=== PATIENT | male | born 1945 | race Caucasian/White ===

== ENCOUNTER 2018-02-07 04:24 | Emergency (ER) | payer OTHER ==
[2018-02-07 05:49] LABS: Absolute Lymphocytes (CBC) 1.2 K/uL (0.7-4.9); Absolute Monocytes 0.8 K/uL (0.1-1.3); Absolute Neutrophil 5.2 K/uL (1.8-8.0); Basophils % 0.2 % (0-1.3); Eosinophils % 1.6 % (0-4.4); Hematocrit 29.8 % (39.6-49.0); Lymphocytes % 16.9 % (15.3-44.8); MCV 94.2 fL (80-100); MPV 8.3 fL (7.6-11.3); Monocytes % 10.3 % (3.3-12.3); RBC Red Blood Cell Count 3.16 M/uL (4.33-5.43)
[2018-02-07 05:56] LABS: Potassium 3.8 mEq/L (3.6-5.0)
--- NOTE | 2018-02-07 06:06 | EDPHYS ---
Physician Documentation [facility] Name: Viet Jose Age: 73 yrs Sex: Male : 1945 Arrival Date: 02/07/2018 Time: 04:28 Bed 13 Private MD: ED Physician Juve Phillips HPI: 02/07 06:02 This 73 yrs old Male presents to ER via Ambulatory with complaints of gs Abnormal Lab Results. 06:02 told had abnormal lab results to come to ED for evaluation. Onset: The symptoms/episode gs began/occurred today. Severity of symptoms: At their worst the symptoms were mild in the emergency department the symptoms are unchanged. The patient has experienced similar episodes in the past, a few times. Historical: - Allergies: 04:54 No Known Allergies; tc3 - Home Meds: 04:54 Lasix Oral [Active]; Omeprazole Oral [Active]; Spironolactone Oral [Active]; tc3 - PMHx: 04:54 acid reflux; Cirrhosis; Hernia; Prostate Cancer; tc3 - PSHx: 04:54 Cholecystectomy; tc3 - Immunization history:: Last tetanus immunization: unknown, Pneumococcal vaccine is not up to date, Flu vaccine is not up to date. - Social history:: Smoking status: Patient uses tobacco products, denies chronic smoking, but will smoke occasionally, Patient uses street drugs, marijuana, Patient/guardian denies using alcohol, the patient reports quitting approximately 0.3 years ago. ROS: 06:02 All other systems are negative. gs Exam: 05:33 ECG was reviewed by the Attending Physician. gs 06:02 Head/Face: Normocephalic, atraumatic. Eyes: Pupils equal round and reactive to light, gs extra-ocular motions intact. Lids and lashes normal. Conjunctiva and sclera are non-icteric and not injected. Cornea within normal limits. Periorbital areas with no swelling, redness, or edema. ENT: Nares patent. No nasal discharge, no septal abnormalities noted. Tympanic membranes are normal and external auditory canals are clear. Oropharynx with no redness, swelling, or masses, exudates, or evidence of obstruction, uvula midline. Mucous membranes moist. Neck: Trachea midline, no thyromegaly or masses palpated, and no cervical lymphadenopathy. Supple, full range of motion without nuchal rigidity, or vertebral point tenderness. No Meningismus. Chest/axilla: Normal chest wall appearance and motion. Nontender with no deformity. No lesions are appreciated. Cardiovascular: Regular rate and rhythm with a normal S1 and S2. No gallops, murmurs, or rubs. Normal PMI, no JVD. No pulse deficits. Respiratory: Lungs have equal breath sounds bilaterally, clear to auscultation and percussion. No rales, rhonchi or wheezes noted. No increased work of breathing, no retractions or nasal flaring. 06:02 Back: No spinal tenderness. No costovertebral tenderness. Full range of motion. Skin: Warm, dry with normal turgor. Normal color with no rashes, no lesions, and no evidence of cellulitis. MS/ Extremity: Pulses equal, no cyanosis. Neurovascular intact. Full, normal range of motion. Neuro: Awake and alert, GCS 15, oriented to person, place, time, and situation. Cranial nerves II-XII grossly intact. Motor strength 5/5 in all extremities. Sensory grossly intact. Cerebellar exam normal. Normal gait. 06:02 Constitutional: The patient appears alert, awake, frail. 06:02 Abdomen/GI: Inspection: distension, Palpation: abdomen is soft and non-tender, + ascites. Vital Signs: 04:50 BP 149 / 75; Pulse 73; Resp 18; Temp 97.8(O); Pulse Ox 100% on R/A; Weight 53.52 kg jd3 (R); Height 5 ft. 9 in. (175.26 cm) (R); Pain 0/10; 04:54 BP 123 / 74; Pulse 74; Resp 18; Pulse Ox 100% on R/A; Pain 0/10; ar4 06:05 BP 108 / 55; Pulse 60; Resp 15 S; Pulse Ox 100% on R/A; Pain 0/10; jd3 04:50 Body Mass Index 17.43 (53.52 kg, 175.26 cm) jd3 04:54 Pt. reports, "I'm not having anymore pain; 0/10." ar4 MDM: 05:09 Patient medically screened. gs 06:02 Differential Diagnosis hyperkalemia, arf, metabolic acidosis. Data reviewed: vital gs signs, nurses notes. Response to treatment: There is no appreciated change of the patient's symptoms at this time, and as a result, I will discharge patient. 06:05 ED course: no ekg changes no hyperkalemia, pt wants to go to [facility] for discharge and follow up with his doctor today. 02/07 05:10 Order name: Basic Metabolic Panel 02/07 05:10 Order name: CBC with Diff 02/07 05:10 Order name: EKG; Complete Time: 05:11 02/07 05:10 Order name: Cardiac monitoring; Complete Time: 05:11 02/07 05:54 Order name: CBC with Automated Diff; Complete Time: 06: EDVT 02/07 05:56 Order name: Basic Metabolic Panel; Complete Time: 06:01 EDVT 02/07 05:10 Order name: EKG - Nurse/Tech; Complete Time: 05:19 02/07 05:10 Order name: IV Saline Lock; Complete Time: 05:23 02/07 05:10 Order name: Labs collected and sent; Complete Time: 05:23 02/07 05:10 Order name: O2 Per Protocol; Complete Time: 05:11 02/07 05:10 Order name: O2 Sat Monitoring; Complete Time: 05:11 EC:33 Rate is 64 beats/min. Rhythm is regular. MD interval is normal. QRS interval is normal. gs T waves are Normal. No ST changes noted. Clinical impression: Normal ECG. Interpreted by me. Administered Medications: No medications were administered Disposition: 02/07/18 06:04 Discharged to Home. Impression: Chronic kidney disease (CKD). - Condition is Stable. - Discharge Instructions: Chronic Kidney Disease. - Medication Reconciliation Form, Thank You Letter, Antibiotic Education, Prescription Opioid Use form. - Follow up: Private Physician; When: Today; Reason: Re-evaluation by your physician. Signatures: Dispatcher [employer] Stacia Pearce RN RN tc3 Juve Phillips MD MD gs Davies, Jonathon, RN RN jd3
--- NOTE | 2018-02-07 06:06 | ER ---
Nurse's Notes [facility] Name: Viet Jose Age: 73 yrs Sex: Male : 1945 Arrival Date: 02/07/2018 Time: 04:28 Bed 13 Private MD: Diagnosis: Chronic kidney disease (CKD) Presentation: 02/07 04:39 Presenting complaint: Patient states: "I was called by my liver transplant doctor ( tc3 Rashaun Salas [phone] Ext [phone]) this evening and told to get to the nearest ER as I was in kidney failure and would be martin to make it through the day if I didn't. I had blood work drawn yesterday and he called me last night around 21:00. He said my lab was BUN= 63, Chloride= 107, K= 5.1, CO2= 18, and Creatinine= 4.88. He also told me to stop all my medications immediately". Transition of care: patient was not received from another setting of care. Onset of symptoms was February 06, 2018. Care prior to arrival: None. 04:39 Method Of Arrival: Ambulatory tc3 04:39 Acuity: DEMARCUS 3 tc3 Historical: - Allergies: 04:54 No Known Allergies; tc3 - Home Meds: 04:54 Lasix Oral [Active]; Omeprazole Oral [Active]; Spironolactone Oral [Active]; tc3 - PMHx: 04:54 acid reflux; Cirrhosis; Hernia; Prostate Cancer; tc3 - PSHx: 04:54 Cholecystectomy; tc3 - Immunization history:: Last tetanus immunization: unknown, Pneumococcal vaccine is not up to date, Flu vaccine is not up to date. - Social history:: Smoking status: Patient uses tobacco products, denies chronic smoking, but will smoke occasionally, Patient uses street drugs, marijuana, Patient/guardian denies using alcohol, the patient reports quitting approximately 0.3 years ago. Screenin:45 Abuse screen: Denies threats or abuse. Denies injuries from another. Nutritional tc3 screening: No deficits noted. Tuberculosis screening: No symptoms or risk factors identified. Fall Risk None identified. Assessment: 04:55 General: Appears in no apparent distress. comfortable, Behavior is calm, cooperative. ar4 Pain: Denies pain. Neuro: Level of Consciousness is awake, alert, obeys commands, Oriented to person, place, time, situation, Middle School Coach are equal bilaterally Moves all extremities. Speech is normal, Facial symmetry appears normal, Pupils are PERRLA. Neuro:. Cardiovascular: Reports None Denies chest pain, shortness of breath, Heart tones S1 S2 present Capillary refill < 3 seconds is brisk in left fingers Patient's skin is warm and dry. Pulses are all present. Rhythm is regular Chest pain is denied. Cardiovascular: Parent/caregiver reports patient has had no cardiovascular symptoms. Respiratory: Airway is patent Breath sounds are clear bilaterally. Respiratory: Denies shortness of breath at rest, on exertion, labored breathing. GI: Bowel sounds present X 4 quads. Abd is soft and non tender X 4 quads. Pt. reports, "I'm not having anymore pain. My doctor called last night and said I would not live to see the morning, if I did not come in last night or this morning; so here I am. He called me about 9:00 last night.". GI: Abdomen is round non-distended, Reports Pt. reports, "I was having some stomach pain last night, but right now I do not have any pain." Patient currently denies diarrhea, nausea, vomiting. : No signs and/or symptoms were reported regarding the genitourinary system. EENT: No signs and/or symptoms were reported regarding the EENT system. Derm: Skin is intact, Skin is dry, Skin is jaundiced, Skin temperature is warm abdomen is cool to touch. Musculoskeletal: No signs and/or symptoms reported regarding the musculoskeletal system. Circulation, motion, and sensation intact. 04:55 Neuro: Gait is unsteady. GI: Abdomen is distended, noted to have ascites, Abd is soft ar4 Abdomen is tender to palpation in epigastric area, right upper quadrant, left upper quadrant, right lower quadrant and left lower quadrant Patient currently denies. Musculoskeletal: Reports Pt. reports, "I did the tests for my walking. I don't have any issues, but I use my cane to help keep me steady.". 06:06 Reassessment: Patient appears in no apparent distress at this time. No changes from jd3 previously documented assessment. Patient and/or family updated on plan of care and expected duration. Pain level reassessed. Patient is alert, oriented x 3, equal unlabored respirations, skin warm/dry/pink. 06:13 Reassessment: Patient appears in no apparent distress at this time. Patient and/or jd3 family updated on plan of care and expected duration. Pain level reassessed. Patient is alert, oriented x 3, equal unlabored respirations, skin warm/dry/pink. pt reported understanding of discharge instructions. Vital Signs: 04:50 BP 149 / 75; Pulse 73; Resp 18; Temp 97.8(O); Pulse Ox 100% on R/A; Weight 53.52 kg jd3 (R); Height 5 ft. 9 in. (175.26 cm) (R); Pain 0/10; 04:54 BP 123 / 74; Pulse 74; Resp 18; Pulse Ox 100% on R/A; Pain 0/10; ar4 06:05 BP 108 / 55; Pulse 60; Resp 15 S; Pulse Ox 100% on R/A; Pain 0/10; jd3 04:50 Body Mass Index 17.43 (53.52 kg, 175.26 cm) jd3 04:54 Pt. reports, "I'm not having anymore pain; 0/10." ar4 ED Course: 04:28 Patient arrived in ED. do 04:45 Arm band placed on. tc3 04:45 Patient has correct armband on for positive identification. Placed in gown. Bed in low tc3 position. Call light in reach. Side rails up X2. Pulse ox on. NIBP on. Warm blanket given. Verbal reassurance given. 04:48 Stacia Weaver RN is Primary Nurse. tc3 04:53 Triage completed. tc3 05:09 Juve Phillips MD is Attending Physician. gs 05:15 EKG done. tc3 05:21 Inserted saline lock: 20 gauge in right antecubital area, using aseptic technique. ar4 Blood collected. 05:21 CBC with Diff Sent, Basic Metabolic Panel Sent. tc3 05:32 Report given to BRYAN Peralta. tc3 06:14 No provider procedures requiring assistance completed. IV discontinued, intact, jd3 bleeding controlled, No redness/swelling at site. Pressure dressing applied. Administered Medications: No medications were administered Outcome: 06:04 Discharge ordered by . gs 06:14 Attestation : I concur with the documentation of Rebeca ROBLES. jd3 06:14 Discharged to home ambulatory. 06:14 Condition: stable 06:14 Discharge instructions given to patient, Instructed on discharge instructions, follow up and referral plans. Demonstrated understanding of instructions, follow-up care. 06:19 Patient left the ED. jd3 Signatures: Alison Singh Teresa RN RN tc3 Juve Phillips MD MD gs Davies, Jonathon, RN RN jd3 Roberts, Amber ar4 Corrections: (The following items were deleted from the chart) 05:10 04:55 Derm: Skin is intact, Skin is dry, Skin is normal, Skin temperature is warm ar4 ar4 05:30 05:29 BASIC METABOLIC PANEL+C.LAB.BRZ drawn and sent. tc3 tc3 05:30 05:29 CBC+H.LAB.BRZ drawn and sent. tc3 tc3
--- NOTE | 2018-02-07 07:32 | EKG ---
Test Date: 2018-02-07 Test Time: 05:11:51 Hims Manager: CRISTI MEASUREMENT RESULTS: Intervals: Rate: 64 SC: 144 QRSD: 82 QT: 428 QTc: 441 [place]: P: 29 SC: 144 QRS: 15 T: 43 INTERPRETIVE STATEMENTS: Normal sinus rhythm Normal ECG Compared to ECG 12/23/2017 16:59:45 ST (T wave) deviation no longer present Prolonged QT interval no longer present Electronically Signed On 02-07-18 07:31:50 CDT by Bucky Mendoza
== END 2018-02-07 06:19 | disposition home or self-care (01) ==
LOC: ER 04:24
DX: N18.9 Chronic kidney disease, unspecified (principal); K74.60 Unspecified cirrhosis of liver; Z85.46 Personal history of malignant neoplasm of prostate; Z72.0 Tobacco use
CPT/HCPCS: 36415; 80048; 85025; 93005; 99284

== ENCOUNTER 2018-06-13 23:40 | Emergency (ER) | payer OTHER ==
[2018-06-14 00:31] LABS: Absolute Lymphocytes (CBC) 0.7 K/uL (0.7-4.9); Absolute Monocytes 1.5 K/uL (0.1-1.3); Absolute Neutrophil 12.1 K/uL (1.8-8.0); Basophils % 0.3 % (0-1.3); Eosinophils % 0.5 % (0-4.4); Hematocrit 22.4 % (39.6-49.0); Lymphocytes % 4.6 % (15.3-44.8); MCH 33.2 pg (27.0-35.0); MCV 100.4 fL (80-100); MPV 8.6 fL (7.6-11.3); Monocytes % 10.4 % (3.3-12.3); RBC Red Blood Cell Count 2.23 M/uL (4.33-5.43)
[2018-06-14 00:38] LABS: Potassium 5.5 mmol/L (3.5-5.1)
[2018-06-14 01:04] LABS: Urine White Blood Cell Casts OK
[2018-06-14 01:05] LABS: Anisocytosis 1+; Blood Morphology Comment NOTED (NOT SEEN); Platelet Estimate ADEQ
[2018-06-14] MEDS ORDERED: SOD POLYSTYREN SUL 15 GM/60 ML UCUP ONE (01:21)
[2018-06-14] MEDS ORDERED: NA CHLORIDE 0.9% 1,000 ML ONE (01:29)
--- NOTE | 2018-06-14 02:41 | ER ---
Nurse's Notes [facility] Name: Viet Jose Age: 73 yrs Sex: Male : 1945 Arrival Date: 06/13/2018 Time: 23:45 Bed 30 Private MD: Diagnosis: Anemia, unspecified;Hematuria;Chronic kidney disease (CKD) Presentation: 06/13 23:46 Presenting complaint: EMS states: "PATIENT FELL AND ACCIDENTALLY YANKED HIS CATHETER. rv HE IS BLEEDING FROM THE CATHETER. NO LOSS OF CONSCIOUSNESS.". Transition of care: patient was not received from another setting of care. Onset of symptoms was June 13, 2018 at 22:00. Risk Assessment: Do you want to hurt yourself or someone else? Patient reports no desire to harm self or others. Initial Sepsis Screen: Does the patient meet any 2 criteria? No. Patient's initial sepsis screen is negative. Does the patient have a suspected source of infection? No. Patient's initial sepsis screen is negative. Care prior to arrival: None. 23:46 Method Of Arrival: EMS: [facility] rv 23:46 Acuity: DEMARCUS 3 rv Triage Assessment: 06/14 01:10 General: Appears in no apparent distress. comfortable, Behavior is calm, cooperative. rv Pain: Denies pain. Historical: - Allergies: 06/13 23:52 No Known Allergies; rv - Home Meds: 23:52 Cipro 500 mg Oral tab [Active]; ferrous gluconate 324 mg (36 mg iron) Oral tab rv [Active]; Furosemide Oral [Active]; Lactulose Oral [Active]; Levofloxacin Oral [Active]; NUTRITION SUPPLEMENT [Active]; omeprazole Oral [Active]; rifaximin oral oral [Active]; Spironolactone Oral [Active]; - Immunization history:: Adult Immunizations up to date. - Ebola Screening: : No symptoms or risks identified at this time. - Social history:: Smoking status: unknown. Screenin/25 00:15 Abuse screen: Denies threats or abuse. Denies injuries from another. Nutritional rv screening: No deficits noted. 00:15 Tuberculosis screening: No symptoms or risk factors identified. Fall Risk None rv identified. Assessment: 00:15 General: Appears in no apparent distress. comfortable, Behavior is calm, cooperative. rv 00:15 Pain: Denies pain. Neuro: Level of Consciousness is awake, alert, obeys commands, rv Oriented to person, place, time, situation. Cardiovascular: Heart tones S1 S2 present. Respiratory: Airway is patent. GI: No signs and/or symptoms were reported involving the gastrointestinal system. : No signs and/or symptoms were reported regarding the genitourinary system. EENT: No signs and/or symptoms were reported regarding the EENT system. Derm: Skin is intact. Vital Signs: 06/13 23:48 BP 132 / 119; Pulse 104; Resp 22; Temp 98.8; Pulse Ox 100% ; Weight 43.09 kg; Height 5 kr2 ft. 9 in. (175.26 cm); 06/14 01:14 BP 99 / 66; Pulse 102; Pulse Ox 100% on R/A; rv 01:39 BP 114 / 58; Pulse 100; Pulse Ox 100% on R/A; rv 02:43 BP 110 / 62; Pulse 94; Pulse Ox 100% on R/A; rv 06/13 23:48 Body Mass Index 14.03 (43.09 kg, 175.26 cm) kr2 ED Course: 06/13 23:45 Patient arrived in ED. rv 23:47 Triage completed. rv 23:49 Placed in gown. Bed in low position. Call light in reach. Side rails up X 1. Cardiac kr2 monitor on. Pulse ox on. NIBP on. Sitter at bedside. Door closed. Noise minimized. Warm blanket given. Pillow given. Head of bed elevated. 23:50 Shawn Blevins NP is PHCP. pm1 23:50 Francisco Wells MD is Attending Physician. pm1 06/14 00:15 Inserted saline lock: 20 gauge in left antecubital area, using aseptic technique. rv Bladder irrigated via [place] with 2.5 liters normal saline returned clear fluid Patient tolerated well. 01:10 Arm band placed on left wrist. rv 02:43 No provider procedures requiring assistance completed. IV discontinued, bleeding rv controlled, No redness/swelling at site. Pressure dressing applied. Administered Medications: 01:24 Drug: Kayexalate 45 grams Route: PO; rv 01:37 Follow up: Response: No adverse reaction rv 01:29 Drug: NS 0.9% 500 ml Route: IV; Rate: bolus; Site: left antecubital; rv 02:20 Follow up: IV Status: Completed infusion rv 02:10 Drug: NS 0.9% 500 ml Route: IV; Rate: bolus; Site: left antecubital; rv 02:51 Follow up: IV Status: Completed infusion rv Outcome: 02:41 Discharge ordered by . pm1 02:44 Discharged to home via wheelchair. rv 02:44 Condition: improved 02:44 Discharge instructions given to patient, Instructed on discharge instructions. 02:51 Patient left the ED. rv Signatures: Shawn Blevins NP DECORATION CHECKER pm1 Ruchi Ly RN RN kr2 Jean Claude Galvez RN RN rv Corrections: (The following items were deleted from the chart) 01:16 01:14 BP 116 / 96; Pulse 73bpm; Pulse Ox 97% RA; rv rv
--- NOTE | 2018-06-14 02:41 | EDPHYS ---
Physician Documentation [facility] Name: Viet Jose Age: 73 yrs Sex: Male : 1945 Arrival Date: 06/13/2018 Time: 23:45 Bed 30 Private MD: ED Physician Francisco Wells HPI: 06/14 02:24 This 73 yrs old Male presents to ER via EMS with complaints of Hematuria. pm1 02:24 The patient presents with a Woodard catheter problem, draining bloody urine. Onset: The pm1 symptoms/episode began/occurred today. Modifying factors: The symptoms are alleviated by nothing, the symptoms are aggravated by nothing. Associated signs and symptoms: Pertinent negatives: abdominal pain, fever, nausea, vomiting. The patient has experienced similar episodes in the past, multiple times. The patient has been recently seen by a physician: with similar presenting complaints, patient with hematuria and cystoscopes performed last week. Catheter changed on by urologist. Patient with appointment at the [place] tomorrow. Patient was taking is pants off and tripped and tugged on his Woodard catheter. Patient with hematuria. Patient has had on and off hematuria for the past 2 months. Taking iron supplements. Historical: - Allergies: 06/13 23:52 No Known Allergies; rv - Home Meds: 23:52 Cipro 500 mg Oral tab [Active]; ferrous gluconate 324 mg (36 mg iron) Oral tab rv [Active]; Furosemide Oral [Active]; Lactulose Oral [Active]; Levofloxacin Oral [Active]; NUTRITION SUPPLEMENT [Active]; omeprazole Oral [Active]; rifaximin oral oral [Active]; Spironolactone Oral [Active]; - Immunization history:: Adult Immunizations up to date. - Ebola Screening: : No symptoms or risks identified at this time. - Social history:: Smoking status: unknown. ROS: 06/14 02:24 Constitutional: Negative for fever, chills, and weight loss, Eyes: Negative for injury, pm1 pain, redness, and discharge, ENT: Negative for injury, pain, and discharge, Neck: Negative for injury, pain, and swelling, Cardiovascular: Negative for chest pain, palpitations, and edema, Respiratory: Negative for shortness of breath, cough, wheezing, and pleuritic chest pain, Abdomen/GI: Negative for abdominal pain, nausea, vomiting, diarrhea, and constipation, Back: Negative for injury and pain. MS/Extremity: Negative for injury and deformity, Skin: Negative for injury, rash, and discoloration. Neuro: Negative for headache, weakness, numbness, tingling, and seizure. : Positive for hematuria. Exam: 02:24 Constitutional: This is a well developed, well nourished patient who is awake, alert, pm1 and in no acute distress. Head/Face: Normocephalic, atraumatic. Eyes: Pupils equal round and reactive to light, extra-ocular motions intact. Lids and lashes normal. Conjunctiva and sclera are non-icteric and not injected. Cornea within normal limits. Periorbital areas with no swelling, redness, or edema. ENT: Nares patent. No nasal discharge, no septal abnormalities noted. Tympanic membranes are normal and external auditory canals are clear. Oropharynx with no redness, swelling, or masses, exudates, or evidence of obstruction, uvula midline. Mucous membranes moist. Neck: Trachea midline, no thyromegaly or masses palpated, and no cervical lymphadenopathy. Supple, full range of motion without nuchal rigidity, or vertebral point tenderness. No Meningismus. Chest/axilla: Normal chest wall appearance and motion. Nontender with no deformity. No lesions are appreciated. Cardiovascular: Regular rate and rhythm with a normal S1 and S2. No gallops, murmurs, or rubs. Normal PMI, no JVD. No pulse deficits. Respiratory: Lungs have equal breath sounds bilaterally, clear to auscultation and percussion. No rales, rhonchi or wheezes noted. No increased work of breathing, no retractions or nasal flaring. Abdomen/GI: Soft, non-tender, with normal bowel sounds. No distension or tympany. No guarding or rebound. No evidence of tenderness throughout. Back: No spinal tenderness. No costovertebral tenderness. Full range of motion. 02:24 MS/ Extremity: Pulses equal, no cyanosis. Neurovascular intact. Full, normal range of motion. 02:24 Skin: Warm, dry with normal turgor. Normal color with no rashes, no lesions, and no evidence of cellulitis. 02:24 : Bladder: is normal, non-distended, non-tender, a woodard is noted, urine is blood tinged. 02:24 Neuro: Orientation: is normal, Motor: moves all fours. Vital Signs: 06/13 23:48 BP 132 / 119; Pulse 104; Resp 22; Temp 98.8; Pulse Ox 100% ; Weight 43.09 kg; Height 5 kr2 ft. 9 in. (175.26 cm); 06/14 01:14 BP 99 / 66; Pulse 102; Pulse Ox 100% on R/A; rv 01:39 BP 114 / 58; Pulse 100; Pulse Ox 100% on R/A; rv 02:43 BP 110 / 62; Pulse 94; Pulse Ox 100% on R/A; rv 06/13 23:48 Body Mass Index 14.03 (43.09 kg, 175.26 cm) kr2 MDM: 06/13 23:50 Patient medically screened. pm1 06/14 02:39 Data reviewed: vital signs. Data interpreted: Pulse oximetry: on room air is 100 %. pm1 Interpretation: normal. Counseling: I had a detailed discussion with the patient and/or guardian regarding: the historical points, exam findings, and any diagnostic results supporting the discharge/admit diagnosis, lab results, the need for outpatient follow up, a urologist, to return to the emergency department if symptoms worsen or persist or if there are any questions or concerns that arise at home. 02:39 ED course: Catheter was not pulled out. V/S. Bladder irrigation improved urine. Urine pm1 is slightly blood tinged. Patient instructed to keep appointment with PCP for further evaluation at the [place] and referral and evaluation by urologist . 06/14 00:02 Order name: CBC with Diff; Complete Time: 01:06 pm1 06/14 00:02 Order name: BMP; Complete Time: 00:45 pm1 06/14 01:05 Order name: CBC Smear Scan; Complete Time: 01:06 EDMS 06/14 00:02 Order name: Bladder Irrigation; Complete Time: 01:14 pm1 Administered Medications: :24 Drug: Kayexalate 45 grams Route: PO; rv 01:37 Follow up: Response: No adverse reaction rv 01:29 Drug: NS 0.9% 500 ml Route: IV; Rate: bolus; Site: left antecubital; rv 02:20 Follow up: IV Status: Completed infusion rv 02:10 Drug: NS 0.9% 500 ml Route: IV; Rate: bolus; Site: left antecubital; rv 02:51 Follow up: IV Status: Completed infusion rv Disposition: 04:28 Co-signature as Attending Physician, Francisco Wells MD. [email or web address] Disposition: 06/14/18 02:41 Discharged to Home. Impression: Anemia, unspecified, Hematuria, Chronic kidney disease (CKD). - Condition is Stable. - Discharge Instructions: Anemia, Nonspecific, Hematuria, Adult, Chronic Kidney Disease, Adult. - Medication Reconciliation Form, Thank You Letter form. - Follow up: Emergency Department; When: As needed; Reason: Worsening of condition. Follow up: Private Physician; When: Tomorrow; Reason: Recheck today's complaints, Continuance of care, Re-evaluation by your physician. - Problem is new. - Symptoms have improved. Signatures: Dispatcher [employer] EDFrancisco Ornelas, Shawn Charles MD, RUBBER ROLLER GRINDER OPERATOR RUBBER ROLLER GRINDER OPERATOR pm1 Ruchi Ly RN RN kr2 Jean Claude Galvez RN RN rv Corrections: (The following items were deleted from the chart) 02:47 02:41 06/14/2018 02:41 Discharged to Home. Impression: Anemia, unspecified; Hematuria. pm1 Condition is Stable. Forms are Medication Reconciliation Form, Thank You Letter, Antibiotic Education, Prescription Opioid Use. Follow up: Emergency Department; When: As needed; Reason: Worsening of condition. Follow up: Private Physician; When: Tomorrow; Reason: Recheck today's complaints, Continuance of care, Re-evaluation by your physician. Problem is new. Symptoms have improved. pm1 02:51 02:47 06/14/2018 02:41 Discharged to Home. Impression: Anemia, unspecified; Hematuria; rv Chronic kidney disease (CKD). Condition is Stable. Discharge Instructions: Anemia, Nonspecific, Hematuria, Adult. Forms are Medication Reconciliation Form, Thank You Letter. Follow up: Emergency Department; When: As needed; Reason: Worsening of condition. Follow up: Private Physician; When: Tomorrow; Reason: Recheck today's complaints, Continuance of care, Re-evaluation by your physician. Problem is new. Symptoms have improved. pm1
== END 2018-06-14 02:51 | disposition home or self-care (01) ==
LOC: ER 23:40
DX: D64.9 Anemia, unspecified (principal); R31.9 Hematuria, unspecified; N18.9 Chronic kidney disease, unspecified
CPT/HCPCS: 36415; 51700; 80048; 85025; 96360; 99285

== ENCOUNTER 2018-06-16 11:05 | Emergency (ER) | payer OTHER ==
[2018-06-16] MEDS ORDERED: LIDOCAINE VISCOUS 2% SOLN 15 ML UDC ONE (11:32)
[2018-06-16] MEDS ORDERED: CIPROFLOXACIN HCL 500 MG TAB ONE (11:50)
[2018-06-16] MEDS ORDERED: metroNIDAZOLE 500 MG TABLET ONE (11:50)
--- NOTE | 2018-06-16 12:00 | ER ---
Nurse's Notes [facility] Name: Viet Jose Age: 73 yrs Sex: Male : 1945 Arrival Date: 06/16/2018 Time: 11:07 Bed 6 Private MD: Josiane Oakley Diagnosis: Gross hematuria;Anemia, unspecified;Unspecified cirrhosis of liver;Weakness Presentation: 06/16 11:18 Presenting complaint: Patient states: was discharged from [facility] last week, s/p umbilical iw hernia surgery on May 16, woodard was placed 06-08-18 prior to discharge, pt has had bleeding in catheter since then, had a fall Tuesday, was seen in ER and Woodard was flushed, pt was sent home, today has had increased pain at woodard insertion site, feels like he is retaining urine. Transition of care: patient was not received from another setting of care. Onset of symptoms was June 16, 2018. Risk Assessment: Do you want to hurt yourself or someone else? Patient reports no desire to harm self or others. Initial Sepsis Screen: Does the patient meet any 2 criteria? No. Patient's initial sepsis screen is negative. Does the patient have a suspected source of infection? No. Patient's initial sepsis screen is negative. Care prior to arrival: None. 11:18 Method Of Arrival: Wheelchair iw 11:18 Acuity: DEMARCUS 3 iw 15:04 Acuity: DEMARCUS 2 ph Historical: - Allergies: 11:25 NKA; iw - Home Meds: 11:31 ferrous gluconate 324 mg (36 mg iron) Oral tab daily [Active]; furosemide 40 mg Oral iw tab 1 tab once daily [Active]; lactulose 10 gram/15 mL (15 mL) Oral soln 15 mL three times a day [Active]; levofloxacin 500 mg Oral tab every other day [Active]; omeprazole 20 mg Oral cpDR 1 cap once daily [Active]; rifaximin oral 550 mg oral 2 times per day [Active]; spironolactone 100 mg Oral tab 1 tab once daily [Active]; tamsulosin 0.4 mg oral cp24 1 cap once daily [Active]; - PMHx: 11:25 Cirrhosis; Depression; gastroenteritis; Anemia; GERD; Hyperlipidemia; Kidney stones; iw Prostate Cancer; Esophageal Varices; - PSHx: 11:38 Bowel resection; iw - Immunization history:: Adult Immunizations up to date. - Social history:: Smoking status: Patient/guardian denies using tobacco, Patient/guardian denies using alcohol, stopped drinking 6-8 months ago. - Ebola Screening: : Patient negative for fever greater than or equal to 101.5 degrees Fahrenheit, and additional compatible Ebola Virus Disease symptoms Patient denies exposure to infectious person Patient denies travel to an Ebola-affected area in the 21 days before illness onset No symptoms or risks identified at this time. - Family history:: not pertinent. Screenin:30 Abuse screen: Denies threats or abuse. Denies injuries from another. Nutritional jl7 screening: No deficits noted. Tuberculosis screening: No symptoms or risk factors identified. Fall Risk No fall in past 12 months (0 pts). No secondary diagnosis (0 pts). IV access (20 points). Ambulatory Aid- None/Bed Rest/Nurse Assist (0 pts). Gait- Weak (10 pts.). Mental Status- Oriented to own ability (0 pts). Total An Fall Scale indicates Low Risk Score (25-44 pts). Fall prevention measures have been instituted. Side Rails Up X 2 Placed close to Nursing Station Frequent Obs/Assesments occuring Family Present and informed to notify staff if they need to leave bedside As available Patient and Family Educated on Fall Prevention Program and strategies. Assessment: 11:30 General: Appears in no apparent distress. uncomfortable, Behavior is calm, cooperative, jl7 appropriate for age. Pain: Complains of pain in meatus Pain does not radiate. Pain currently is 0 out of 10 on a pain scale. at worst was 9 out of 10 on a pain scale. Quality of pain is described as "Pain." Pain began 1 day ago. Is intermittent. Neuro: Level of Consciousness is awake, alert, obeys commands, Oriented to person, place, time, situation. Cardiovascular: Heart tones present Patient's skin is warm and dry. Respiratory: Airway is patent Respiratory effort is even, unlabored, Respiratory pattern is regular, symmetrical. GI: Abdomen is round distended, bruised on right lower quadrant and left lower quadrant. : Woodard in place to gravity drainage Urine is [place] blood. EENT: No signs and/or symptoms were reported regarding the EENT system. Derm: Skin is dry, Skin is pale, Skin temperature is warm. 12:30 Reassessment: No changes from previously documented assessment. Patient and/or family jl7 updated on plan of care and expected duration. Pain level reassessed. Patient is alert, oriented x 3, equal unlabored respirations, skin warm/dry/pink. 13:30 Reassessment: Patient and/or family updated on plan of care and expected duration. Pain jl7 level reassessed. Patient is alert, oriented x 3, equal unlabored respirations, skin warm/dry/pink. 14:40 Reassessment: PRBC Unit #1 to left hand. jl7 14:55 Reassessment: PRBC infusion moved to right AC. jl7 15:10 Reassessment: FFP #1 to left hand. jl7 17:25 Reassessment: PRBC Unit #2 to right AC. jl7 17:40 Reassessment: FFP #2 to left hand. jl7 18:30 Reassessment: No changes from previously documented assessment. Patient and/or family jl7 updated on plan of care and expected duration. Pain level reassessed. Patient is alert, oriented x 3, equal unlabored respirations, skin warm/dry/pink. 19:15 General: Appears in no apparent distress. uncomfortable, Behavior is calm, cooperative, tl2 appropriate for age. Pain: Complains of pain in meatus Is intermittent. Neuro: Level of Consciousness is awake, alert, obeys commands, Oriented to person, place, time, situation. Cardiovascular: Denies chest pain. Respiratory: Airway is patent Respiratory effort is even, unlabored, Respiratory pattern is regular, symmetrical. GI: Abdomen is round distended, bruised on right upper quadrant, left upper quadrant, right lower quadrant and left lower quadrant. : Woodard in place to gravity drainage Urine is [place] blood. Derm: Skin is pink, warm \\T\\ dry. 19:30 Reassessment: Blood and FFP infusions completed. tl2 20:55 Reassessment: [facility] tl2 23:51 Reassessment: Pt c/o increased pain in penis and felt like "something is blocking me tl2 from peeing". Flushed catheter with 20 mL of NS and urine began to drain. Drained 500 mL of merlot colored urine and small clots noted. Pt stated he felt better. EMS at bedside for transfer. Vital Signs: 11:26 BP 100 / 61; Pulse 107; Resp 18 S; Temp 97.6(O); Pulse Ox 100% on R/A; Weight 47.63 kg; iw Height 5 ft. 9 in. (175.26 cm); Pain 4/10; 12:30 BP 89 / 52; Pulse 100; Resp 16; Pulse Ox 98% on R/A; jl7 14:40 BP 86 / 51; Pulse 98; Resp 15; Pulse Ox 100% on R/A; jl7 15:00 BP 97 / 54; Pulse 101; Resp 15; Pulse Ox 100% on R/A; jl7 16:00 BP 105 / 62; Pulse 88; Resp 16; Pulse Ox 100% on R/A; jl7 16:15 BP 110 / 62; Pulse 90; Resp 16; Pulse Ox 100% on R/A; jl7 16:45 BP 112 / 62; Pulse 92; Resp 14; Pulse Ox 100% on R/A; jl7 17:30 BP 112 / 65; Pulse 88; Resp 14; Temp 98.5; Pulse Ox 100% ; Pain 4/10; jl7 18:00 BP 113 / 63; Pulse 83; Resp 15; Pulse Ox 100% on R/A; jl7 18:30 BP 114 / 66; Pulse 86; Resp 16; Pulse Ox 100% on R/A; jl7 19:15 BP 115 / 70; Pulse 81; Resp 16; Pulse Ox 99% on R/A; ao 20:26 BP 113 / 66; Pulse 82; Resp 14; Pulse Ox 100% ; ao 22:01 BP 101 / 62; Pulse 99; Resp 12; Pulse Ox 99% ; ao 23:53 BP 115 / 71; Pulse 97; Resp 18; Pulse Ox 97% on R/A; tl2 11:26 Body Mass Index 15.51 (47.63 kg, 175.26 cm) iw ED Course: 11:07 Patient arrived in ED. as 11:08 [facility] is Private Physician. as 11:09 Luis Arango MD is Attending Physician. [facility] 11:12 Consuelo Thorpe RN is Primary Nurse. jl7 11:23 Triage completed. iw 11:26 Arm band placed on. iw 11:30 Patient has correct armband on for positive identification. Placed in gown. Bed in low jl7 position. Call light in reach. Side rails up X2. electronic device monitor on. Pulse ox on. NIBP on. Warm blanket given. 11:[address] via stretcher. nj 12:00 CT Stone Protocol In Process Unspecified. EDMS 12:00 CT completed. Patient tolerated procedure well. Patient moved back from [place]. [place] 12:00 Urine collected: Woodard catheter specimen, [place] blood. Woodard cath inserted, using jl7 sterile technique, 18 Fr., by me, balloon inflated, to gravity drainage, urine specimen collected. returned bloody urine. Patient tolerated well. 12:09 X-ray completed. Portable x-ray completed in exam room. Patient tolerated procedure jb2 well. 12:10 XRAY Chest (1 view) In Process Unspecified. EDMS 12:16 called and initiated a transfer with Nini at the [facility]. She asked eb that we please fax the clinical results we have to the following number [phone]. 12:23 EKG done, by respiratory support technician. reviewed by Luis Arango MD. at1 12:45 Missed attempt(s): 22 gauge in left forearm. Bleeding controlled, band aid applied, jl7 catheter tip intact. 12:59 Inserted saline lock: 24 gauge in left hand, using aseptic technique. Blood collected. [facility] 12:59 Initial lab(s) drawn, by ks, sent to lab. [facility] 13:33 labs are back / faxed records. eb 14:30 Consent for blood and/or blood product transfusion explained by staff, explained by [facility] physician, Signed by daughter. 15:08 called to check status on the transfer/ Lenora from the transfer center retook all the eb information and asked for another fax of records/ records were faxed again. 17:16 called again to check the status of the transfer and spoke with Socorro who again also eb says she does not know what happened to my previous faxes but asked that I please refax all the patient information and record to the following number [phone]/ she will start the transfer process again. records again faxed over. 18:45 called again to check the status of the transfer, per Anne Marie she is the only person eb there currently and asked again for me to refax the patient records. / records faxed once again. 19:00 Report given to BRYAN Michele. jl7 20:54 Cleaned of incontinence. tl2 21:42 [facility] 23:57 No provider procedures requiring assistance completed. Patient transferred, IV remains tl2 in place. Administered Medications: 11:45 Drug: Viscous Lidocaine Liquid (4 %) 10 ml Route: Mucous Membrane; jl7 15:25 Follow up: Response: No adverse reaction jl7 13:00 Drug: NS 0.9% 1000 ml Route: IV; Rate: 75 ml/hr; Site: left hand; jl7 15:10 Follow up: IV Pause: 06/16/2018 15:10; IV Pause Reason: Limited IV access/Medication jl7 interaction 23:58 Follow up: IV Status: Completed infusion tl2 13:01 Drug: Rocephin - (cefTRIAXone) 1 grams {Note: administered over 2 min per protocol.} jl7 Route: IVPB; Infused Over: 30 mins; Site: left hand; 13:03 Follow up: IV Status: Completed infusion jl7 13:30 Follow up: Response: No adverse reaction jl7 14:30 Drug: Vitamin K1 10 mg Route: Sub-Q; Site: right upper arm; jl7 15:25 Follow up: Response: No adverse reaction jl7 22:43 Drug: fentaNYL (PF) 25 mcg Route: IVP; Site: right antecubital; tl2 23:57 Follow up: Response: No adverse reaction; Pain is decreased tl2 Outcome: 11:59 ER care complete, transfer ordered by . [facility] 23:57 Transferred by ground EMS to [facility] Transfer form completed. tl2 23:57 Condition: stable 23:57 Discharge instructions given to patient, Instructed on the need for transfer. 23:58 Patient left the ED. tl2 Signatures: Dispatcher [employer] EDMS Luis Arango MD MD cha Buechter, Jesse jb2 Cleo Escamilla Irene, RN RN iw Nova becerra, supervising fire marshal EKG Tat1 Doris Live RN RN ph Page, Corey, PA PA cp Ortiz, Alex, RN RN ao Knox, Taylor, RN RN tl2 Calvin Hanson Jahala, RN RN jl7 Mcguire, Mariana eb Corrections: (The following items were deleted from the chart) 15:31 13:33 faxed records eb eb 23:52 23:51 Reassessment: Pt c/o increased pain in penis and felt like "something is blocking tl2 me from peeing". Flushed catheter with 20 mL of NS and urine began to drain. Drained 500 mL of merlot colored urine. Pt stated he felt better. EMS at bedside for transfer tl2
--- NOTE | 2018-06-16 12:00 | EDPHYS ---
Physician Documentation [facility] Name: Viet Jose Age: 73 yrs Sex: Male : 1945 Arrival Date: 06/16/2018 Time: 11:07 Bed 6 Private MD: [facility] ED Physician Luis Arango HPI: 06/16 11:33 This 73 yrs old Male presents to ER via Wheelchair with complaints of Problem mingo With Urinary Catheter. 11:33 The patient presents with abdominal pain abdominal distention in the upper abdomen, in mingo the lower abdomen. Onset: The symptoms/episode began/occurred 2 week(s) ago. The patient presents with a Maddox catheter problem, draining bloody urine, flank pain, described as achy. Onset: The symptoms/episode began/occurred 2 week(s) ago. Modifying factors: The symptoms are alleviated by nothing, the symptoms are aggravated by nothing. Associated signs and symptoms: The patient has no apparent associated signs or symptoms. The symptoms do not radiate. Historical: - Allergies: 11:25 NKA; iw - Home Meds: 11:31 ferrous gluconate 324 mg (36 mg iron) Oral tab daily [Active]; furosemide 40 mg Oral iw tab 1 tab once daily [Active]; lactulose 10 gram/15 mL (15 mL) Oral soln 15 mL three times a day [Active]; levofloxacin 500 mg Oral tab every other day [Active]; omeprazole 20 mg Oral cpDR 1 cap once daily [Active]; rifaximin oral 550 mg oral 2 times per day [Active]; spironolactone 100 mg Oral tab 1 tab once daily [Active]; tamsulosin 0.4 mg oral cp24 1 cap once daily [Active]; - PMHx: 11:25 Cirrhosis; Depression; gastroenteritis; Anemia; GERD; Hyperlipidemia; Kidney stones; iw Prostate Cancer; Esophageal Varices; - PSHx: 11:38 Bowel resection; iw - Immunization history:: Adult Immunizations up to date. - Social history:: Smoking status: Patient/guardian denies using tobacco, Patient/guardian denies using alcohol, stopped drinking 6-8 months ago. - Ebola Screening: : Patient negative for fever greater than or equal to 101.5 degrees Fahrenheit, and additional compatible Ebola Virus Disease symptoms Patient denies exposure to infectious person Patient denies travel to an Ebola-affected area in the 21 days before illness onset No symptoms or risks identified at this time. - Family history:: not pertinent. ROS: 11:33 Constitutional: Negative for fever, chills, and weight loss, Eyes: Negative for injury, mingo pain, redness, and discharge, ENT: Negative for injury, pain, and discharge, Neck: Negative for injury, pain, and swelling, Cardiovascular: Negative for chest pain, palpitations, and edema, Respiratory: Negative for shortness of breath, cough, wheezing, and pleuritic chest pain, Back: Negative for injury and pain, MS/Extremity: Negative for injury and deformity, Neuro: Negative for headache, weakness, numbness, tingling, and seizure. 11:33 Abdomen/GI: Positive for abdominal distension. 11:33 : Positive for hematuria, of the abdomen. Exam: 11:33 Constitutional: This is a well developed, well nourished patient who is awake, alert, mingo and in no acute distress. Head/Face: Normocephalic, atraumatic. Eyes: Pupils equal round and reactive to light, extra-ocular motions intact. Lids and lashes normal. Conjunctiva and sclera are non-icteric and not injected. Cornea within normal limits. Periorbital areas with no swelling, redness, or edema. ENT: Nares patent. No nasal discharge, no septal abnormalities noted. Tympanic membranes are normal and external auditory canals are clear. Oropharynx with no redness, swelling, or masses, exudates, or evidence of obstruction, uvula midline. Mucous membranes moist. Neck: Trachea midline, no thyromegaly or masses palpated, and no cervical lymphadenopathy. Supple, full range of motion without nuchal rigidity, or vertebral point tenderness. No Meningismus. Chest/axilla: Normal chest wall appearance and motion. Nontender with no deformity. No lesions are appreciated. Respiratory: Lungs have equal breath sounds bilaterally, clear to auscultation and percussion. No rales, rhonchi or wheezes noted. No increased work of breathing, no retractions or nasal flaring. Back: No spinal tenderness. No costovertebral tenderness. Full range of motion. MS/ Extremity: Pulses equal, no cyanosis. Neurovascular intact. Full, normal range of motion. Neuro: Awake and alert, GCS 15, oriented to person, place, time, and situation. Cranial nerves II-XII grossly intact. Motor strength 5/5 in all extremities. Sensory grossly intact. Cerebellar exam normal. Normal gait. Psych: Awake, alert, with orientation to person, place and time. Behavior, mood, and affect are within normal limits. 11:33 Cardiovascular: Rate: tachycardic, Rhythm: regular, Pulses: Pulses are 4+ in bilateral radial, brachial, femoral, popliteal, posterior tibial and and dorsalis pedis arteries.. Heart sounds: normal, normal S1and S2, Edema: is not appreciated, JVD: is not appreciated, Bilateral blood pressure: is equal. Vital Signs: 11:26 BP 100 / 61; Pulse 107; Resp 18 S; Temp 97.6(O); Pulse Ox 100% on R/A; Weight 47.63 kg; iw Height 5 ft. 9 in. (175.26 cm); Pain 4/10; 12:30 BP 89 / 52; Pulse 100; Resp 16; Pulse Ox 98% on R/A; jl7 14:40 BP 86 / 51; Pulse 98; Resp 15; Pulse Ox 100% on R/A; jl7 15:00 BP 97 / 54; Pulse 101; Resp 15; Pulse Ox 100% on R/A; jl7 16:00 BP 105 / 62; Pulse 88; Resp 16; Pulse Ox 100% on R/A; jl7 16:15 BP 110 / 62; Pulse 90; Resp 16; Pulse Ox 100% on R/A; jl7 16:45 BP 112 / 62; Pulse 92; Resp 14; Pulse Ox 100% on R/A; jl7 17:30 BP 112 / 65; Pulse 88; Resp 14; Temp 98.5; Pulse Ox 100% ; Pain 4/10; jl7 18:00 BP 113 / 63; Pulse 83; Resp 15; Pulse Ox 100% on R/A; jl7 18:30 BP 114 / 66; Pulse 86; Resp 16; Pulse Ox 100% on R/A; jl7 19:15 BP 115 / 70; Pulse 81; Resp 16; Pulse Ox 99% on R/A; ao 20:26 BP 113 / 66; Pulse 82; Resp 14; Pulse Ox 100% ; ao 22:01 BP 101 / 62; Pulse 99; Resp 12; Pulse Ox 99% ; ao 23:53 BP 115 / 71; Pulse 97; Resp 18; Pulse Ox 97% on R/A; tl2 11:26 Body Mass Index 15.51 (47.63 kg, 175.26 cm) iw MDM: 11:10 Patient medically screened. [facility] 11:33 Data reviewed: vital signs, nurses notes, lab test result(s), EKG, radiologic studies. [facility] 21:46 Physician consultation: DR Forte \T\[facility]. 06/16 11:31 Order name: Basic Metabolic Panel [facility] 06/16 11:31 Order name: CBC with Diff; Complete Time: 13:34 [facility] 06/16 11:31 Order name: Ckmb [facility] 06/16 11:31 Order name: CPK; Complete Time: 21:43 [facility] 06/16 11:31 Order name: LFT's; Complete Time: 21:43 [facility] 06/16 11:31 Order name: Magnesium; Complete Time: 21:43 [facility] 06/16 11:31 Order name: NT PRO-BNP [facility] 06/16 11:31 Order name: PT-INR; Complete Time: 13:34 [facility] 06/16 11:31 Order name: Ptt, Activated; Complete Time: 13:34 [facility] 06/16 11:31 Order name: Troponin (emerg Dept Use Only); Complete Time: 21:43 [facility] 06/16 11:31 Order name: Type And Screen [facility] 06/16 11:31 Order name: Lipase; Complete Time: 21:43 [facility] 06/16 11:31 Order name: AMMONIA; Complete Time: 21:43 [facility] 06/16 11:31 Order name: Basic Metabolic Panel; Complete Time: 21:43 [facility] 06/16 11:31 Order name: XRAY Chest (1 view); Complete Time: 12:36 [facility] 06/16 11:31 Order name: EKG; Complete Time: 11:32 [facility] 06/16 11:31 Order name: CKMB Creatine Kinase MB; Complete Time: 21:43 [facility] 06/16 11:31 Order name: NT PRO-BNP; Complete Time: 21:43 [facility] 06/16 11:32 Order name: CT Stone Protocol; Complete Time: 12:36 [facility] 06/16 11:33 Order name: Urine Culture [facility] 06/16 13:45 Order name: Fresh Frozen Plasma [facility] 06/16 13:45 Order name: Packed RBC Leukored -1 [facility] 06/16 13:46 Order name: Bb Add On eb 06/16 14:44 Order name: UA; Complete Time: 21:43 [facility] 06/16 15:36 Order name: Urine Microscopic Only; Complete Time: 21:43 [facility] 06/16 11:31 Order name: Cardiac monitoring; Complete Time: 13:04 [facility] 06/16 11:31 Order name: EKG - Nurse/Tech; Complete Time: 13:04 [facility] 06/16 11:31 Order name: IV Saline Lock; Complete Time: 13:04 [facility] 06/16 11:31 Order name: Labs collected and sent; Complete Time: 13:04 [facility] 06/16 11:31 Order name: O2 Per Protocol; Complete Time: 13:04 [facility] 06/16 11:31 Order name: O2 Sat Monitoring; Complete Time: 13:04 [facility] 06/16 11:31 Order name: Urine Dipstick-Ancillary (obtain specimen); Complete Time: 13:04 [facility] 06/16 11:31 Order name: Maddox; Complete Time: 12:13 [facility] 06/16 13:37 Order name: Transfuse; Complete Time: 15:24 [facility] Administered Medications: 11:45 Drug: Viscous Lidocaine Liquid (4 %) 10 ml Route: Mucous Membrane; jl7 15:25 Follow up: Response: No adverse reaction jl7 13:00 Drug: NS 0.9% 1000 ml Route: IV; Rate: 75 ml/hr; Site: left hand; jl7 15:10 Follow up: IV Pause: 06/16/2018 15:10; IV Pause Reason: Limited IV access/Medication jl7 interaction 23:58 Follow up: IV Status: Completed infusion tl2 13:01 Drug: Rocephin - (cefTRIAXone) 1 grams {Note: administered over 2 min per protocol.} jl7 Route: IVPB; Infused Over: 30 mins; Site: left hand; 13:03 Follow up: IV Status: Completed infusion jl7 13:30 Follow up: Response: No adverse reaction jl7 14:30 Drug: Vitamin K1 10 mg Route: Sub-Q; Site: right upper arm; jl7 15:25 Follow up: Response: No adverse reaction jl7 22:43 Drug: fentaNYL (PF) 25 mcg Route: IVP; Site: right antecubital; tl2 23:57 Follow up: Response: No adverse reaction; Pain is decreased tl2 Disposition: 06/16/18 11:59 Transfer [facility] to [facility]. Diagnosis are Gross hematuria, Anemia, unspecified, Unspecified cirrhosis of liver, Weakness. - Reason for transfer: Higher level of care. - Accepting physician is Dr Forte. - Condition is Fair. - Problem is new. - Symptoms have improved. Addendum: 06/19/2018 10:30 Co-signature as Attending Physician, Luis Arango MD I agree with the assessment and c funez plan of care. Signatures: Dispatcher [employer] EDLuis Buchanan MD MD cha Williams, Irene, RN RN iw Luis Jarrett PA PA cp Leny Meek, RN RN tl2 Consuelo Thorpe RN RN jl7 Corrections: (The following items were deleted from the chart) 06/16 21:47 11:59 06/16/2018 11:59 Transfer ordered to [facility]. Diagnosis is Gross hematuria; Anemia, unspecified; Unspecified cirrhosis of liver; Weakness. Reason for transfer: Higher level of care. Accepting physician is to [place]. Condition is Fair. Problem is new. Symptoms have improved. [facility] 23:58 21:47 06/16/2018 11:59 Transfer ordered to [address] Diagnosis is Gross hematuria; Anemia, unspecified; Unspecified cirrhosis of liver; Weakness. Reason for transfer: Higher level of care. Accepting physician is Dr Forte. Condition is Fair. Problem is new. Symptoms have improved. cp
--- NOTE | 2018-06-16 12:12 | RAD REPORT ---
EXAM DESCRIPTION: CT - Stone Protocol - 06/16/2018 12:00 pm CLINICAL HISTORY: Flank pain. ABD PAIN COMPARISON: Abdomen Pelvis W Contrast dated 10/21/2017 TECHNIQUE: Axial images were obtained without oral or IV contrast. Lack of contrast limits solid org an and vascular assessment. The [id number] spans the entirety of the system partially obscuring uppermost abdomen and lung bases. Coronal reformatted images were obtained and reviewed. All CT scans are performed using dose optimization technique as appropriate and may include automated exposure control or mA/KV adjustment according to patient size. FINDINGS: Small pleural effusions bilaterally with linear atelectasis suspected left lung base. The liver is small in size and nodular in contour compatible with cirrhosis. Cholecystectomy clips ar e seen.Spleen is normal in size. The pancreas and adrenal glands are normal. No pathologic lymphadeno jesus in the abdomen or pelvis. A 6 mm stone is present in the left kidney without hydronephrosis. This appears unchanged in position . No additional stone is present. No right-sided stone or hydronephrosis. Moderate volume ascites. No bowel obstruction or free air seen. A large echogenic structure is present in the urinary bladder measuring 4.7 x 7.5 cm suspicious for a large blood clot. Small air bubble is present in the urinary bladder soup anteriorly. Maddox catheter is in place. Mild anterior wedge compression deformities of L1 and L3 noted. IMPRESSION: A large blood clot is suspected within the urinary bladder. Liver cirrhosis is noted with moderate volume ascites. Left renal stone without hydronephrosis.
[2018-06-16] MEDS ORDERED: CEFTRIAXONE/SWI 1gm 1 GM/10 ML SYR ONE (12:18)
[2018-06-16] MEDS ORDERED: NA CHLORIDE 0.9% 1,000 ML ONE ×2 (12:18→17:21)
--- NOTE | 2018-06-16 12:18 | RAD REPORT ---
EXAM DESCRIPTION: RAD - Chest Single View - 06/16/2018 12:11 pm CLINICAL HISTORY: COUGH Chest pain. COMPARISON: Chest Single View dated 12/23/2017; Chest Pa And Lat (2 Views) dated 12/14/2017 FINDINGS: Portable technique limits examination quality. Mild ill-defined opacity in the right lung base probably represents subsegmental atelectasis or aspir ation. The lungs are otherwise emphysematous but clear. The heart is normal in size. No displaced fra ctures.
--- NOTE | 2018-06-16 12:51 | EKG ---
Test Date: 2018-06-16 Test Time: 12:18:44 3D Modeler: KADEN MEASUREMENT RESULTS: Intervals: Rate: 104 UT: 130 QRSD: 68 QT: 354 QTc: 465 [place]: P: 48 UT: 130 QRS: 13 T: 54 INTERPRETIVE STATEMENTS: Sinus tachycardia with occasional premature ventricular complexes Otherwise normal ECG Compared to ECG 02/07/2018 05:11:51 Ventricular premature complex(es) now present Sinus rhythm no longer present Electronically Signed On 06-16-18 12:50:38 CDT by Bucky Mendoza
[2018-06-16 13:21] LABS: Absolute Lymphocytes (CBC) 0.8 K/uL (0.7-4.9); Absolute Monocytes 1.2 K/uL (0.1-1.3); Absolute Neutrophil 9.2 K/uL (1.8-8.0); Basophils % 0.2 % (0-1.3); Eosinophils % 0.9 % (0-4.4); Hematocrit 15.5 % (39.6-49.0); Lymphocytes % 7.3 % (15.3-44.8); MCH 33.6 pg (27.0-35.0); MCV 98.8 fL (80-100); MPV 8.6 fL (7.6-11.3); Monocytes % 10.9 % (3.3-12.3); RBC Red Blood Cell Count 1.57 M/uL (4.33-5.43)
[2018-06-16 13:27] LABS: Protime INR 1.49
[2018-06-16 13:52] LABS: ALT/SGPT 20 U/L (12-78); AST/SGOT 23 U/L (15-37); Albumin 2.8 g/dL (3.4-5.0); Alkaline Phosphatase 98 U/L (45-117); BUN Blood Urea Nitrogen 64 mg/dL (7-18); Bicarbonate 21 mmol/L (21-32); Bilirubin Direct 0.4 mg/dL (0-0.2); Bilirubin Total 0.9 mg/dL (0.2-1.0); CKMB Creatine Kinase MB < 1.0 ng/mL (0.3-3.6); Creatine Phosphokinase 29 U/L (39-308); Glucose Level 161 mg/dL (74-106); Lipase 833 U/L (73-393); Magnesium 2.4 mg/dL (1.8-2.4); NT PRO-BNP 347 pg/mL (<125); Potassium 3.9 mmol/L (3.5-5.1); Protein, Total 6.2 g/dL (6.4-8.2); Sodium Level 135 mmol/L (136-145)
[2018-06-16] MEDS ORDERED: VITAMIN K (ADULT) 10 MG/ML ONE (14:20)
[2018-06-16] MEDS ORDERED: NA CHLORIDE 0.9% 500 ML ONE (14:35)
[2018-06-16 15:30] LABS: Urine Appearance CLOUDY; Urine Blood 3+ (NEG); Urine Color RED; Urine Glucose TRACE (NEG); Urine Protein 3+ (NEG); Urine Specific Gravity 1.025 (1.005-1.030); Urine Urobilinogen 0.2 mg/dL (0.2-1.0)
[2018-06-16 15:34] LABS: Urine Bilirubin NEGATIVE (NEG); Urine Microscopic Reflex ORDER UMIC
[2018-06-16 15:36] LABS: Urine Bacteria <20 /HPF (NONE SEEN); Urine Culture Reflex Order NOT NEEDED; Urine RBC TNTC /HPF (NONE SEEN)
[2018-06-16] MEDS ORDERED: FENTANYL CITR 100 MCG/2 ML ONE (22:42)
== END 2018-06-16 23:58 ==
LOC: ER 11:05
DX: R31.0 Gross hematuria (principal); K74.60 Unspecified cirrhosis of liver; D64.9 Anemia, unspecified
CPT/HCPCS: 36415; 51702; 71045; 74176; 76377; 80048; 80076; 82140; 82550; 82553; 83690; 83735; 83880; 84484; 85025; 85610; 85730; 86850; 86900; 86901; 87086; 87088; 93005; 96372; 99285; J0696; J3010; J3430; J7030; P9016 ×2; P9059 ×2; 36430; 81003; 81015; 96361; 96374; 96375

== ENCOUNTER 2018-06-28 02:54 | Emergency (ER) | payer OTHER ==
[2018-06-28] MEDS ORDERED: ONDANSETRON 4 MG/2 ML VIAL ONE (03:54)
[2018-06-28] MEDS ORDERED: MORPHINE 4 MG/ML SYR ONE (03:54)
[2018-06-28] MEDS ORDERED: NA CHLORIDE 0.9% 250 ML ONE (03:55)
[2018-06-28 04:17] LABS: Absolute Lymphocytes (CBC) 0.6 K/uL (0.7-4.9); Absolute Monocytes 1.4 K/uL (0.1-1.3); Absolute Neutrophil 9.5 K/uL (1.8-8.0); Basophils % 0.3 % (0-1.3); Eosinophils % 1.3 % (0-4.4); Lymphocytes % 5.2 % (15.3-44.8); MCH 32.7 pg (27.0-35.0); MCV 95.3 fL (80-100); MPV 8.8 fL (7.6-11.3); Monocytes % 12.3 % (3.3-12.3); RBC Red Blood Cell Count 2.05 M/uL (4.33-5.43)
[2018-06-28 04:33] LABS: Albumin 2.6 g/dL (3.4-5.0); Bilirubin Total 1.1 mg/dL (0.2-1.0); Potassium 5.1 mmol/L (3.5-5.1); Protein, Total 5.7 g/dL (6.4-8.2)
[2018-06-28 04:34] LABS: Hematocrit 19.6 % (39.6-49.0)
--- NOTE | 2018-06-28 05:37 | P.CNS ---
Date of Consult: 06/28/18 Requesting Physician: Luis Arango Chief Complaint: abdominal pain History of Present Illness: Mr Jose is a 73 years old male with history of end stage liver disease due to alcoholic cirrhosis, who is currently on hospice care, came to ED complaining of severe lower abdominal pain. He has a chronic indweling catheter , at arrival to ED had gross hematuria, which is not a new problem. No history of fever or chills. Lab work remarkable for Hgb 6.7 mg/dl, BP 101/76 HR 98. During his stay in ER, Maddox catheter was exchanged, and he received pain medication. After this intervention, the pain in his lower abdomen resolved and he felt much more comfortable. Allergies No Known Allergies Allergy (Verified 12/16/17 10:55) Home Medications: Omeprazole [Prilosec] 40 mg PO DAILY 10/20/17 Folic Acid 1 mg PO DAILY #30 tablet 10/22/17 Thiamine HCl [Vitamin B-1*] 100 mg PO DAILY #30 tablet 10/22/17 - Past Medical/Surgical History Diabetic: No -: Prostate CA -: [place] -: Pneumonia -: end stage liver disease -: alcoholic cirrhosis -: R breast tumor -: Eye surgery to remove metal particles - Family History Father Medical History: Cancer Notes: colon Mother Medical History: Other (see notes) Notes: Alzheimer's - Social History Smoking Status: Former smoker Alcohol use: Yes CD- Drugs: No Caffeine use: Yes Place of Residence: Home Review of Systems 10-point ROS is otherwise unremarkable Physical Examination General: Alert, In no apparent distress, Oriented x3, Cachectic HEENT: Atraumatic, PERRLA, Mucous membr. moist/pink, EOMI, Sclerae nonicteric Neck: Supple, 2+ carotid pulse no bruit, No LAD, Without JVD or thyroid abnormality Respiratory: Clear to auscultation bilaterally, Normal air movement Cardiovascular: Normal S1 S2, No gallops Gastrointestinal: Hypoactive, Distended, Ascites, Tenderness (mild diffuse generalized abdominal pain with palpation) Musculoskeletal: No tenderness Integumentary: No rashes Neurological: Normal speech, Normal tone, Normal affect Lymphatics: No axilla or inguinal lymphadenopathy Laboratory Data (last 24 hrs) 06/28/18 03:43: Sodium 132 L, Potassium 5.1, BUN 76 H, Creatinine 3.80 H D, Glucose 139 H, Total Bilirubin 1.1 H, AST 26, ALT 16, Alkaline Phosphatase 102 06/28/18 03:43: WBC 11.7 H, Hgb 6.7 L*, Hct 19.6 L* D, Plt Count 104 L - Problems (1) End stage liver disease Current Visit: Yes Status: Acute (2) Alcoholic cirrhosis Current Visit: Yes Status: Acute Qualifiers: Ascites presence: with ascites Qualified Code(s): K70.31 - Alcoholic cirrhosis of liver with ascites (3) Gross hematuria Current Visit: Yes Status: Acute (4) Abdominal pain Current Visit: Yes Status: Acute Qualifiers: Abdominal location: generalized Qualified Code(s): R10.84 - Generalized abdominal pain (5) Acute on chronic blood loss anemia Current Visit: Yes Status: Acute Conclusions/Impression: Mr Jose is a 73 years old male with end stage liver disease, currently on hospice care, cachectic, weak, but alert and oriented. He presented with acute on chronic blood loss anemia due to gross hematuria, with indwelling catheter obstructed by a clot. The pain resolved after exchange Maddox catheter. His prognosis is very poor. At this point is reasonable to continue only with comfort measures, under hospice care. I do not recommend further diagnostic test , blood transfusion or invasive procedures, which may prolong his agony. The current clinical status and prognosis was discussed with the patient, who is agree to continue only with comfort care at home under hospice care. Dr Arango is also agree. Since the patient pain is well controlled, he will return home today, with pain medication on board.
[2018-06-28] MEDS ORDERED: FENTANYL 50 MCG/PATCH TD ONE (05:59)
[2018-06-28 06:06] LABS: Urine Appearance CLOUDY; Urine Blood 3+ (NEG); Urine Color RED; Urine Glucose NEGATIVE (NEG); Urine Protein 3+ (NEG); Urine Urobilinogen 0.2 mg/dL (0.2-1.0)
[2018-06-28 06:09] LABS: Urine Microscopic Reflex ORDER UMIC
[2018-06-28 06:35] LABS: Urine Bilirubin NEGATIVE (NEG)
[2018-06-28 06:39] LABS: Urine Bacteria <20 /HPF (NONE SEEN); Urine RBC TNTC /HPF (NONE SEEN)
[2018-06-28 06:40] LABS: Urine Culture Reflex Order NOT NEEDED
--- NOTE | 2018-06-28 06:57 | ER ---
Nurse's Notes [facility] Name: Viet Jose Age: 73 yrs Sex: Male : 1945 Arrival Date: 06/28/2018 Time: 02:56 Bed 13 Private MD: Diagnosis: Unspecified cirrhosis of liver;Anemia, unspecified;Abdominal tenderness;Ascites;Unspecified kidney failure;Hematuria-gross;Mechanical complication of urinary (indwelling) catheter Presentation: 06/28 03:03 Presenting complaint: Patient states: blood clot in catheter. pt c/o of increased pain ak1 due to clots. pt on hospice care. pt was able to "flush" the clot out but has no more flushes. pt is treated at the ID. Transition of care: patient was not received from another setting of care. Onset of symptoms was June 28, 2018. Risk Assessment: Do you want to hurt yourself or someone else? Patient reports no desire to harm self or others. Care prior to arrival: used saline flushes to flush Woodard catheter. 03:03 Method Of Arrival: EMS: [facility] ak1 03:03 Acuity: DEMARCUS 3 ak1 03:08 Note EMS reports pt stated he uses a walker to ambulate at home. EMS stated pt was very ak1 unsteady upon standing. 06:46 Initial Sepsis Screen: Does the patient meet any 2 criteria? No. Patient's initial lc1 sepsis screen is negative. Does the patient have a suspected source of infection? No. Patient's initial sepsis screen is negative. Triage Assessment: 03:07 General: Appears ill, slender, emaciated, malnourished, Behavior is calm, cooperative. ak1 Pain: Complains of pain in groin Pain currently is 2 out of 10 on a pain scale. at worst was 10 out of 10 on a pain scale. Historical: - Allergies: 03:06 NKA; ak1 - Home Meds: 03:06 Cipro 500 mg Oral tab [Active]; ferrous gluconate 324 mg (36 mg iron) Oral tab ak1 [Active]; ferrous gluconate 324 mg (36 mg iron) Oral tab daily [Active]; furosemide 40 mg Oral tab 1 tab once daily [Active]; Furosemide Oral [Active]; lactulose 10 gram/15 mL (15 mL) Oral soln 15 mL three times a day [Active]; Lactulose Oral [Active]; levofloxacin 500 mg Oral tab Every other day [Active]; NUTRITION SUPPLEMENT [Active]; omeprazole 20 mg Oral cpDR 1 cap once daily [Active]; rifaximin 550 mg Oral 2 times per day [Active]; spironolactone 100 mg Oral tab 1 tab once daily [Active]; tamsulosin 0.4 mg Oral cp24 1 cap once daily [Active]; - PMHx: 03:06 Anemia; Cirrhosis; Depression; esophageal varices; Gastroenteritis; Prostate Cancer; ak1 Kidney stones; Hyperlipidemia; GERD; - PSHx: 03:06 Bowel resection; Hernia repair; ak1 - Immunization history:: Adult Immunizations unknown. - Social history:: Smoking status: unknown. - Family history:: not pertinent. - Ebola Screening: : No symptoms or risks identified at this time. Screenin:45 Abuse screen: Denies threats or abuse. Nutritional screening: No deficits noted. lc1 Tuberculosis screening: No symptoms or risk factors identified. Fall Risk None identified. Assessment: 04:11 General: Appears distressed, uncomfortable, emaciated, Behavior is calm, cooperative. lc1 Pain: Complains of pain in pelvis and groin Pain currently is 8 out of 10 on a pain scale. Quality of pain is described as sharp, Pain began 4 hours ago. Is intermittent, Noted to be moaning. Neuro: No deficits noted. Cardiovascular: No deficits noted. Respiratory: No deficits noted. GI: Abdomen is distended, noted to have ascites, bruised on epigastric area, umbilical area, right upper quadrant and left upper quadrant From recent bowel surgery Reports lower abdominal pain. : 3-way catheter in place to gravity drainage Urine is [place] blood, with numerous clots, patient states he has been passing clots for months, usually they are small but he has had some large clots that have obstructed his catheter and he has to massage them out Reports pain in suprapubic area scrotum. EENT: No signs and/or symptoms were reported regarding the EENT system. Derm: No signs and/or symptoms reported regarding the dermatologic system. Musculoskeletal: No signs and/or symptoms reported regarding the musculoskeletal system. 04:39 Reassessment: Patient and/or family updated on plan of care and expected duration. Pain lc1 level reassessed. Patient states feeling better. 05:43 Reassessment: No changes from previously documented assessment. Patient and/or family lc1 updated on plan of care and expected duration. Pain level reassessed. 06:44 Reassessment: Patient and/or family updated on plan of care and expected duration. Pain lc1 level reassessed. Patient states feeling better. Vital Signs: 03:02 BP 94 / 76; Pulse 103; Resp 20; Temp 97.4(TE); Pulse Ox 100% on R/A; Weight 43.09 kg ak1 (R); Height 5 ft. 9 in. (175.26 cm) (R); Pain 2/10; 03:45 BP 101 / 55; Pulse 96; Resp 18; Pulse Ox 100% on R/A; Pain 3/10; lc1 04:30 BP 95 / 50; Pulse 92; Resp 18; Pulse Ox 100% on R/A; lc1 05:30 BP 99 / 53; Pulse 90; Resp 18; Pulse Ox 100% on R/A; lc1 06:30 BP 92 / 56; Pulse 91; Resp 18; Pulse Ox 100% on R/A; lc1 03:02 Body Mass Index 14.03 (43.09 kg, 175.26 cm) ak1 ED Course: 02:56 Patient arrived in ED. ds1 03:01 Luis Arango MD is Attending Physician. mingo 03:02 Arm band placed on Patient placed in an exam room, on a stretcher, on pulse oximetry, ak1 Patient notified of wait time. 03:05 Triage completed. ak1 03:07 Patient has correct armband on for positive identification. Bed in low position. Call ak1 light in reach. Side rails up X2. Pulse ox on. NIBP on. 03:20 No provider procedures requiring assistance completed. 3-way catheter inserted, using lc1 sterile technique, 22 Fr. Specimen obtained. patient received with woodard in place which was not draining, patient states it was placed several weeks ago, woodard removed and replaced. Inserted saline lock: 20 gauge in right antecubital area, using aseptic technique. 03:47 Mariaelena Cross is Primary Nurse. lc1 03:48 Type And Screen Sent. lc1 04:21 Awaiting lab results. lc1 04:[address] irrigated with 120 ml of sterile NS, dark [place] blood noted with some small lc1 clots, draining freely to bag. 05:44 Awaiting disposition. lc1 07:03 IV discontinued, intact, bleeding controlled, Pressure dressing applied. lc1 Administered Medications: 03:50 Drug: NS 0.9% 250 ml Route: IV; Rate: bolus; Site: right antecubital; lc1 04:22 Follow up: Response: No adverse reaction; IV Status: Completed infusion lc1 03:50 Drug: morphine 2 mg Route: IVP; Site: right antecubital; lc1 04:21 Follow up: Response: No adverse reaction lc1 03:50 Drug: Zofran 4 mg Route: IVP; Site: right antecubital; lc1 04:21 Follow up: Response: No adverse reaction lc1 05:57 Drug: morphine 2 mg Route: IVP; Site: right antecubital; lc1 05:59 Follow up: Response: No adverse reaction lc1 05:58 Drug: fentaNYL Patch (50 mcg/hr) 1 patches Route: Transdermal; Site: affected area; lc1 05:59 Follow up: Response: No adverse reaction 1 Outcome: 06:30 Condition: stable lc1 06:57 Discharge ordered by . mingo 07:03 Discharged to home via ambulance. 1 07:03 Discharge instructions given to patient, Instructed on discharge instructions. 07:24 Patient left the ED. lc1 Signatures: Luis Arango MD MD cha Sanford, Demi ds1 Calhoun, Lisa lc1 Rebeca Olvera, RN RN ak1
--- NOTE | 2018-06-28 06:57 | EDPHYS ---
Physician Documentation [facility] Name: Viet Jose Age: 73 yrs Sex: Male : 1945 Arrival Date: 06/28/2018 Time: 02:56 Bed 13 Private MD: ED Physician Luis Arango HPI: 06/28 03:05 This 73 yrs old Male presents to ER via EMS with complaints of blocked woodard, mingo hematuria and pain. 03:05 The patient presents with a Woodard catheter problem, draining bloody urine, is not mingo draining. Onset: The symptoms/episode began/occurred 2 day(s) ago. Modifying factors: The symptoms are alleviated by nothing, the symptoms are aggravated by nothing. Associated signs and symptoms: Pertinent positives: abdominal pain, dysuria. Severity of symptoms: At their worst the symptoms were mild, in the emergency department the symptoms are unchanged. The patient has experienced similar episodes in the past, several times. Historical: - Allergies: 03:06 NKA; ak1 - Home Meds: 03:06 Cipro 500 mg Oral tab [Active]; ferrous gluconate 324 mg (36 mg iron) Oral tab ak1 [Active]; ferrous gluconate 324 mg (36 mg iron) Oral tab daily [Active]; furosemide 40 mg Oral tab 1 tab once daily [Active]; Furosemide Oral [Active]; lactulose 10 gram/15 mL (15 mL) Oral soln 15 mL three times a day [Active]; Lactulose Oral [Active]; levofloxacin 500 mg Oral tab Every other day [Active]; NUTRITION SUPPLEMENT [Active]; omeprazole 20 mg Oral cpDR 1 cap once daily [Active]; rifaximin 550 mg Oral 2 times per day [Active]; spironolactone 100 mg Oral tab 1 tab once daily [Active]; tamsulosin 0.4 mg Oral cp24 1 cap once daily [Active]; - PMHx: 03:06 Anemia; Cirrhosis; Depression; esophageal varices; Gastroenteritis; Prostate Cancer; ak1 Kidney stones; Hyperlipidemia; GERD; - PSHx: 03:06 Bowel resection; Hernia repair; ak1 - Immunization history:: Adult Immunizations unknown. - Social history:: Smoking status: unknown. - Family history:: not pertinent. - Ebola Screening: : No symptoms or risks identified at this time. ROS: 03:05 Eyes: Negative for injury, pain, redness, and discharge, ENT: Negative for injury, mingo pain, and discharge, Neck: Negative for injury, pain, and swelling, Cardiovascular: Negative for chest pain, palpitations, and edema, Respiratory: Negative for shortness of breath, cough, wheezing, and pleuritic chest pain, Back: Negative for injury and pain. 03:05 Constitutional: Positive for malaise. 03:05 Abdomen/GI: Positive for abdominal distension. 03:05 MS/extremity: Positive for thin wasted extremities. Exam: 03:05 ENT: Mouth: Lips: dry, Oral mucosa: moist. mingo 03:05 Chest/axilla: Exam negative for 03:05 Cardiovascular: Rate: normal, Rhythm: regular, Pulses: Pulses are 4+ in bilateral radial, brachial, femoral, popliteal, posterior tibial and and dorsalis pedis arteries.. Heart sounds: normal, Edema: is not appreciated, JVD: is not appreciated. 03:11 Head/Face: Normocephalic, atraumatic. mingo 04:56 ENT: Mouth: mingo 04:56 Neck: External neck: is normal, no acute changes, Trachea: is midline with no obvious abnormalities, no acute changes. 04:56 Respiratory: the patient does not display signs of respiratory distress, Respirations: normal, Breath sounds: decreased breath sounds. 04:56 Abdomen/GI: Inspection: distension, Bowel sounds: high pitched, Palpation: mild abdominal tenderness, in all quadrants, Liver: no appreciated palpable abnormalities, Hernia: not appreciated. 04:56 Musculoskeletal/extremity: DVT Exam: no pain, no swelling, no tenderness, negative Homans' sign noted on exam, no appreciated bluish discoloration, no erythema, no increased warmth. 04:56 Neuro: Orientation: is normal, appropriate for stated age, no acute changes, Mentation: is normal, appropriate for stated age, no acute changes, Memory: is normal, appropriate for stated age, no acute changes, Motor: moves all fours, Gait: not tested. Babinski testing is normal, seizure activity, is not displayed by the patient. Vital Signs: 03:02 BP 94 / 76; Pulse 103; Resp 20; Temp 97.4(TE); Pulse Ox 100% on R/A; Weight 43.09 kg ak1 (R); Height 5 ft. 9 in. (175.26 cm) (R); Pain 2/10; 03:45 BP 101 / 55; Pulse 96; Resp 18; Pulse Ox 100% on R/A; Pain 3/10; lc1 04:30 BP 95 / 50; Pulse 92; Resp 18; Pulse Ox 100% on R/A; lc1 05:30 BP 99 / 53; Pulse 90; Resp 18; Pulse Ox 100% on R/A; lc1 06:30 BP 92 / 56; Pulse 91; Resp 18; Pulse Ox 100% on R/A; lc1 03:02 Body Mass Index 14.03 (43.09 kg, 175.26 cm) ak1 MDM: 03:01 Patient medically screened. [facility] 03:05 Data reviewed: vital signs, nurses notes, lab test result(s), urinalysis, hematuria. [facility] 06/28 03:10 Order name: Urine Culture [facility] 06/28 03:14 Order name: CBC with Diff; Complete Time: 04:47 [facility] 06/28 03:14 Order name: Comprehensive Metabolic Panel; Complete Time: 04:47 [facility] 06/28 03:18 Order name: Type And Screen [facility] 06/28 03:19 Order name: Type and Screen; Complete Time: 07:06 EDMS 06/28 03:27 Order name: UA; Complete Time: 07:06 rg2 06/28 06:10 Order name: Urine Microscopic Only; Complete Time: 07:06 EDMS 08 03:04 Order name: Woodard: irrigate; Complete Time: 04:10 mingo 06/28 03:10 Order name: Urine Dipstick-Ancillary (obtain specimen); Complete Time: 03:48 [facility] Administered Medications: 03:50 Drug: NS 0.9% 250 ml Route: IV; Rate: bolus; Site: right antecubital; lc1 04:22 Follow up: Response: No adverse reaction; IV Status: Completed infusion lc1 03:50 Drug: morphine 2 mg Route: IVP; Site: right antecubital; lc1 04:21 Follow up: Response: No adverse reaction lc1 03:50 Drug: Zofran 4 mg Route: IVP; Site: right antecubital; lc1 04:21 Follow up: Response: No adverse reaction lc1 05:57 Drug: morphine 2 mg Route: IVP; Site: right antecubital; lc1 05:59 Follow up: Response: No adverse reaction 1 05:58 Drug: fentaNYL Patch (50 mcg/hr) 1 patches Route: Transdermal; Site: affected area; 1 05:59 Follow up: Response: No adverse reaction lc1 Disposition: 06/28/18 06:57 Discharged to Home. Impression: Unspecified cirrhosis of liver, Anemia, unspecified, Abdominal tenderness, Ascites, Unspecified kidney failure, Hematuria - gross, Mechanical complication of urinary (indwelling) catheter. - Condition is Serious. - Discharge Instructions: Abdominal Pain, Adult, Anemia, Nonspecific, Hematuria, Adult, Esophageal Varices, Abdominal Pain, Adult, [id number], Hospice, Chronic Kidney Disease, Adult, [id number]. - Medication Reconciliation Form, Thank You Letter, Antibiotic Education, Prescription Opioid Use form. - Follow up: Private Physician; When: As needed; Reason: Recheck today's complaints, Continuance of care, Re-evaluation by your physician. - Problem is an ongoing problem. - Symptoms are unchanged. Addendum: 07/17/2018 09:36 Addendum: consult Dr. Goel for ER consult. amanda funez Signatures: Dispatcher [employer] EDSD Luis Arango MD MD cha Calhoun, Lisa 1 Rebeca Olvera, RN RN ak1 Corrections: (The following items were deleted from the chart) 06/28 03:32 03:19 Chest Single View+RAD.RAD.BRZ ordered. [facility] EDSD 05:05 04:52 Blood Transfusion Consent ordered. mingo aguila 06:39 05:33 Packed RBC Leukored -1 ordered. EDSD EDSD 07:07 04:53 Abdomen Pelvis Wo Con+CT.RAD.BRZ ordered. [facility] EDSD 07:07 04:55 Abdomen Pelvis Wo Con+CT.RAD.BRZ ordered. [facility] EDMS 07:24 06:57 06/28/2018 06:57 Discharged to Home. Impression: Unspecified cirrhosis of liver; lc1 Anemia, unspecified; Abdominal tenderness; Ascites; Unspecified kidney failure; Hematuria - gross; Mechanical complication of urinary (indwelling) catheter. Condition is Serious. Discharge Instructions: Abdominal Pain, Adult, Anemia, Nonspecific, Hematuria, Adult, Esophageal Varices, Abdominal Pain, Adult, [id number], Hospice, Chronic Kidney Disease, Adult, [id number]. Forms are Medication Reconciliation Form, Thank You Letter, Antibiotic Education, Prescription Opioid Use. Follow up: Private Physician; When: As needed; Reason: Recheck today's complaints, Continuance of care, Re-evaluation by your physician. Problem is an ongoing problem. Symptoms are unchanged. mingo
== END 2018-06-28 07:24 | disposition home or self-care (01) ==
LOC: ER 02:54
DX: T83.098A Other mechanical complication of other urinary catheter, initial encounter (principal); K74.60 Unspecified cirrhosis of liver; R18.8 Other ascites; N19 Unspecified kidney failure; D64.9 Anemia, unspecified; R10.819 Abdominal tenderness, unspecified site; E78.5 Hyperlipidemia, unspecified; Z85.46 Personal history of malignant neoplasm of prostate
CPT/HCPCS: 36415; 80053; 85025; 86850; 86900; 86901; 87086; 87088; J2405; 81003; 81015; 96361; 96365; 96374; 96375; 99284